=== PATIENT | female | born 1955 | race Caucasian/White ===

== ENCOUNTER 2022-06-01 08:27 | Emergency (ER) | payer OTHER ==
[~2022-06-01] VITALS: Ht 175.3 cm; Wt 81.6 kg
[2022-06-01 08:35] VITALS: BP_SYST 133
--- NOTE | 2022-06-01 08:58 | NUR ---
BIB SELF FROM HOME WITH C/O SOB FOR THE PAST MONTH. PT STATES HER SYMPTOMS HAVE BECOME WORSE WITHIN THE LAST WEEK. PT HAS A PERSISTANT COUGH FOR THE PAST WEEK. PT STATES WHEN SHE HAS HER SYMPTOMS, THEY WILL NOT GO AWAY WITHOUT SOME TYPE OF ANTIBIOTIC TREATMENT. HX: N/A PT IS AAX04, VSS, NAD, BREATHING IS EVEN AND UNLABORED, SKIN INTACT. PT IS AMBULATORY WITH STEADY GAIT, PT IN GOWN. PT PLACED ON PRINTING GREY CLOTH TENDER SHOWING NSR. SAFETY PRECAUTIONS AND COMFORT MEASURES IN PLACE. HOB ELEVADED, SIDE RAILS UP, BED IN LOWEST POSITION, CALL LIGHT WITHIN REACH. PENDING MD TEIXEIRA AND ORDERS.
--- NOTE | 2022-06-01 08:59 | NUR ---
ER at bedside examining patient.
[2022-06-01] MEDS ORDERED: ROBAC PO (09:40)
[2022-06-01] MEDS ORDERED: ZIT250 PO (09:40)
--- NOTE | 2022-06-01 09:43 | NUR ---
EULA ROLDAN FLU SWABBED AND SENT TO LAB
[2022-06-01] MEDS ORDERED: AZITHROMYCIN 250 MG TABLET PO ONE (09:45)
--- NOTE | 2022-06-01 09:50 | NUR ---
PT MEDICALLY CLEARED FOR D/C. D/C INSTRUCTIONS GIVEN TO PT. PT TO FOLLOW UP WITH PCP WITHIN 1-3 DAYS AND TO RETURN TO ED FOR WORSENING S/S. PT VERBALIZED UNDERSTANDING. PT AAX04, NAD, BREATHING IS EVEN AND UNLABORED, WRISTBAND REMOVED. PT AMBULATORY WITH STEADY GAIT. PT LEFT ED WITH ALL BELONINGS.
[2022-06-01 09:58] VITALS: BP_SYST 121
== END 2022-06-01 09:50 | disposition home or self-care (01) ==
LOC: SED 08:27
DX: J18.1 Lobar pneumonia, unspecified organism (principal); R05.9 Cough, unspecified; R06.02 Shortness of breath; R50.9 Fever, unspecified; Z79.899 Other long term (current) drug therapy; Z20.822 Contact with and (suspected) exposure to COVID-19
CPT/HCPCS: 36415; 71046-TC; 99284